=== PATIENT | male | born 1975 | race Caucasian/White ===

== ENCOUNTER 2021-08-28 09:18 | Emergency (ER) | payer MEDICAID, OTHER ==
[~2021-08-28] VITALS: Ht 190.5 cm; Wt 125.6 kg
[2021-08-28] MEDS ORDERED: ONDANSETRON ODT 4 MG TAB PO ONE ×2 (10:15→12:15)
[2021-08-28] MEDS ORDERED: MORPHINE SULFATE INJ 2 MG/ml SYRG IM ONE (10:15)
[2021-08-28] MEDS ORDERED: HYDROmorphone HCL 2 MG/ML VL/or syr IM ONE (12:15)
[2021-08-28 13:08] LABS: Basophils # (auto) 0 10 ^3/uL (0-0.2); Basophils % (auto) 0.2 % (0.0-2.0); Eosinophils # (auto) 0 10 ^3/uL (0-0.8); Eosinophils % (auto) 0.1 % (0.0-7.0); Hematocrit 45.9 % (41.0-53.0); Hemoglobin 15.7 g/dL (13.5-17.5); Lymphocytes % (auto) 9.6 % (10.0-50.0); Mean Corpuscular Hemoglobin 31.2 pg (28.0-32.0); Mean Corpuscular Hgb Conc. 34.2 g/dL (32.0-36.0); Mean Corpuscular Volume 91.3 fL (80.0-100.0); Monocytes # (auto) 0.9 10 ^3/uL (0-1.3); Monocytes % (auto) 8.9 % (0.0-12.0); Neutrophils # (auto) 8.2 10 ^3/uL (1.6-8.6); Neutrophils % (auto) 81.2 % (37.0-80.0); Nucleated Red Blood Cells % 0.2 %; Red Blood Cells 5.03 10^6/uL (4.5-5.90); White Blood Cell 10.1 10^3/uL (4.4-10.8)
[2021-08-28 13:23] LABS: INR 1.12 (0.9-1.15); Partial Thromboplastin Time 32.5 sec (23.6-33.0)
[2021-08-28 13:24] LABS: Albumin 4.1 g/dL (3.4-5.0); Calcium 8.5 mg/dL (8.5-10.1); Potassium 3.8 mmol/L (3.5-5.1)
[2021-08-28 13:27] LABS: BUN/Creatinine Ratio 7.7; Bilirubin, Total 2.9 mg/dL (0.2-1.0); Total Protein 9.1 g/dL (6.4-8.2)
[2021-08-28] MEDS ORDERED: SODIUM CHLORIDE 0.9% 1,000 ML IV ONE (13:45)
[2021-08-28] MEDS ORDERED: HYDROmorphone HCL 2 MG/ML VL/or syr IV ONE (14:45)
[2021-08-28 16:00] VITALS: BP 147/90
== END 2021-08-28 16:20 | disposition short-term general hospital (02) ==
LOC: EDBD 09:18 → ER 09:18
DX: S82.141A Displaced bicondylar fracture of right tibia, initial encounter for closed fracture (principal); X58.XXXA Exposure to other specified factors, initial encounter; Y93.01 Activity, walking, marching and hiking; Y92.89 Other specified places as the place of occurrence of the external cause; Y99.8 Other external cause status
CPT/HCPCS: 36415; 73562; 73700; 80053; 85025; 85610; 85730; 96361; 96372; 96374; 99285; J1170; J2270; J7030; Q0162